=== PATIENT | male | born 1995 | race Hispanic/Latino ===

== ENCOUNTER 2024-03-06 15:57 | Observation (INO) | payer SELFPAY ==
[2024-03-06 16:31] VITALS: BMI 41.1
[2024-03-06] MEDS ORDERED: Ondansetron ODT 4 MG TAB PO PRN (16:32)
[2024-03-06] MEDS ORDERED: Acetaminophen 325 MG TAB PO PRN (16:32)
[2024-03-06] MEDS ORDERED: Nitroglycerin 0.4 MG TAB (25 Tab Bottle) SL PRN (16:32)
[2024-03-06] MEDS ORDERED: Ondansetron PF 4 MG/2 ML Vial IVP PRN (16:32)
[2024-03-06 17:37] LABS: Acetaminophen Less than 10 mcg/mL (10.0-30.0); Alcohol Less than 10.0 mg/dL (Less than 10); Salicylate Less than 8.0 mg/dL (15.0-30.0)
[2024-03-06 17:44] LABS: Troponin I 0.036 ng/mL (< 0.028)
[2024-03-06 19:05] LABS: Bilirubin Neg (Negative); Blood, Urine Negative (Negative); Clarity Clear (Clear); Glucose, Urine (Dipstick) 50 mg/dL (Negative); Ketone, Urine Negative (Negative); Leukocyte Negative (Negative); Nitrite Negative (Negative); Protein, Urine (Dipstick) Negative (Neg-Trace); Specific Gravity, Urine 1.025 (1.005-1.030); Urobilinogen Normal mg/dL (Less than 2)
[2024-03-06 19:13] LABS: Amphetamine Not Detected (NotDetected); Barbiturates Screen Not Detected (NotDetected); Benzodiazepine Screen Not Detected (NotDetected); Cocaine Metabolite Screen Not Detected (NotDetected); Methadone Not Detected (NotDetected); Methamphetamine Not Detected (NotDetected); Opiate Screen Not Detected (NotDetected); Oxycodone Screen Not Detected (NotDetected); Phencyclidine (PCP) Not Detected (NotDetected); THC/Cannabinoid Screen Not Detected (NotDetected); Tricyclic Screen Not Detected (NotDetected)
[2024-03-06] MEDS: traMADol HCl 50 MG TAB PO PRN (19:25)
[2024-03-06 19:50] LABS: Bacteria/HPF Rare-Few HPF (None Seen); Mucous/LPF 1+ LPF (<2+); RBC/HPF None Seen HPF (0-3); Squamous Epithelial 0-3 HPF (0-3); WBC/HPF None Seen HPF (0-3)
[2024-03-06 19:50] LABS: Hemoglobin A1c 5.3 % (4.0-6.0)
[2024-03-06 20:08] LABS: Troponin I 0.038 ng/mL (< 0.028)
[2024-03-06] MEDS ORDERED: Enoxaparin 80 MG (0.8 mL) SYRINGE SC SCH (21:00)
[2024-03-06] MEDS: Ibuprofen 800 MG TAB PO SCH (21:20)
[2024-03-06] MEDS: Colchicine 0.6 MG TAB PO SCH (21:20)
[2024-03-06] MEDS: Famotidine 20 MG TAB PO SCH (21:22)
[2024-03-07 03:40] LABS: #Basophils 0.07 10x3/uL (0.0-0.2); #Eosinphils 0.26 10x3/uL (0.0-0.5); #Monocytes 0.94 10x3/uL (0.0-1.1); #Neutrophils 4.75 10x3/uL (1.5-8.4); %Basophils 0.7 % (0.0-2.0); %Eosinophils 2.6 % (0.0-6.0); %Lymphocytes 39.1 % (18.0-47.0); %Monocytes 9.3 % (0.0-10.0); %Neutrophils 47.2 % (40.0-75.0); Hemoglobin 14.6 g/dL (13.5-17.5); Mean Corpuscular HGB CONC 34.8 g/dL (32.0-36.0); Mean Corpuscular Hemoglobin 30.9 pg (27.0-33.0); Mean Platelet Volume 10.3 fL (7.4-10.4); Platelet Count 270 10x3/uL (150-450); RBC Distribution Width 12.4 % (11.5-14.5); Red Blood Cell (RBC) Count 4.72 10x6/uL (4.32-5.72); White Blood Cell (WBC) Count 10.1 10x3/uL (3.5-10.5)
[2024-03-07] MEDS: Famotidine/PF 20 mg/2ml Vial SLOW IVP SCH (03:48)
[2024-03-07 04:05] LABS: ALT (SGPT) 87 U/L (8-55); AST (SGOT) 42 U/L (5-34); Albumin 3.7 g/dL (3.5-5.0); Alkaline Phosphatase 63 U/L (40-110); Anion Gap 15 mmol/L (10-20); BUN (Urea Nitrogen) 10 mg/dL (8.9-20.6); Bilirubin, Total 0.3 mg/dL (0.2-1.2); Calc. Creatinine Clearance 271 mL/min (70-130); Calcium 9.2 mg/dL (7.8-10.44); Carbon Dioxide 26 mmol/L (22-29); Cardiac Risk 4.8 (Less than 4.5); Chloride 105 mmol/L (98-107); Cholesterol 149 mg/dl (< 200 Desired); Estimated GFR 126; Globulin 3.6 g/dL (2.4-3.5); Glucose 90 mg/dL (70-105); HDL Cholesterol 31 mg/dL (>60 Neg Risk); LDL Cholesterol, Calculated 83 mg/dL; Potassium 4.5 mmol/L (3.5-5.1); Protein, Total 7.3 g/dL (6.0-8.3); Sodium 141 mmol/L (136-145); Triglycerides 175 mg/dL (Less than 150)
[2024-03-07] MEDS: Aspirin Chewable 81 MG TAB PO SCH (09:40)
[2024-03-07] MEDS: Enoxaparin 40 MG (0.4 mL) SYRINGE SC SCH (09:42)
[2024-03-07 13:12] VITALS: BP 141/73; TEMP 98.3
== END 2024-03-07 16:55 | disposition home or self-care (01) ==
LOC: CSHTELE 16:24
PROVIDERS: ADMIT Family Medicine; ATTEND Family Medicine
PROC: B246YZZ Ultrasonography of Right and Left Heart using Other Contrast (ICD-10-PCS; principal; 2024-03-06)
DX: J45.20 Mild intermittent asthma, uncomplicated (principal); N04.9 Nephrotic syndrome with unspecified morphologic changes; K76.0 Fatty (change of) liver, not elsewhere classified; E66.9 Obesity, unspecified; R07.89 Other chest pain; Z79.82 Long term (current) use of aspirin; Z79.899 Other long term (current) drug therapy
CPT/HCPCS: 36415; 80053; 80061; 80306; 80307; 81001; 83036; 85025; 87633; 93005; 93010; 93306; G0378